=== PATIENT | male | born 1975 | race Caucasian/White ===

== ENCOUNTER 2020-04-16 02:01 | Observation (INO) ==
[2020-04-16] MEDS ORDERED: Aspirin 81 MG TAB.CHEW PO ONE (02:13)
[2020-04-16 02:41] LABS: Basophils % 0.3 %; Eosinophils # 0.1 K/mcL (0.0-0.6); Eosinophils % 0.6 %; Hematocrit 41.9 % (37.5-50.1); Hemoglobin 13.7 g/dL (12.9-16.9); Immature Granulocytes % 0.4 % (0-4); Lymphocytes # 1.2 K/mcL (0.6-4.6); Lymphocytes % 9.7 %; Mean Corpuscular HGB Conc 32.7 g/dL (31.6-35.5); Mean Corpuscular Hemoglobin 32.1 pg (28.0-33.3); Mean Corpuscular Volume 98.1 fL (83.0-100.0); Mean Platelet Volume 10.4 fL (9.4-12.4); Monocytes # 1.2 K/mcL (0.0-1.3); Monocytes % 9.2 %; Neutrophils # 10.1 K/mcL (1.6-8.9); Platelet Count 239 K/mcL (140-400); Red Blood Count 4.27 M/mcL (4.19-5.50); Red Cell Distribution Width 13.1 % (11.5-14.5); Segmented Neutrophils % 79.8 %; White Blood Count 12.7 K/mcL (4.3-11.1)
[2020-04-16 02:46] LABS: INR 0.9; Prothrombin Time 10.5 Seconds (9.4-12.1)
[2020-04-16 02:49] LABS: Activated Partial Thrombo Time 31.6 Seconds (26.0-36.0)
[2020-04-16 03:04] LABS: Alanine Aminotransferase 16 Units/L (7-52); Albumin 4.2 g/dL (3.5-5.7); Albumin/Globulin Ratio 1.6 (1.1-2.2); Alkaline Phosphatase 76 Units/L (34-104); Aspartate Amino Transferase 17 Units/L (13-39); BUN/Creatinine Ratio 15 (6-26); Bilirubin,Total 0.4 mg/dL (0.3-1.0); Blood Urea Nitrogen 13 mg/dL (6-20); Carbon Dioxide 28 mEq/L (23-29); Chloride 101 mEq/L (98-107); Globulin 2.7 g/dL (2.4-3.5); Glucose 88 mg/dL (70-105); Osmolality,Calculated 282 (280-300); Sodium 136 mEq/L (136-145); Total Protein 6.9 g/dL (6.4-8.9); Troponin I < 0.03 ng/mL (< 0.04); eGFR For African Americans > 60 (> 60); eGFR For Non-African Americans > 60 (> 60)
[2020-04-16] MEDS ORDERED: *HR* FentaNYL (PF) 100 MCG/2 ML VIAL IVP ONE (04:01)
[2020-04-16] MEDS ORDERED: Naloxone 0.4 MG/ML INJ IVP PRN (04:03)
[2020-04-16] MEDS ORDERED: Ondansetron 4 MG/2 ML VIAL IVP PRN (04:03)
[2020-04-16] MEDS ORDERED: Perflutren Lipid Microsphere 1.3 ML in 0.9 % Sodium Chloride 8.7 ML IVP PRN (04:06)
[2020-04-16] MEDS ORDERED: *HR* LORazepam 2 MG/ML VIAL IVP PRN ×3 (06:25)
[2020-04-16] MEDS: Folic Acid 1 MG TABLET PO SCH (10:04)
[2020-04-16] MEDS: Colchicine 0.6 MG TABLET PO SCH ×2 (10:04→20:24)
[2020-04-16] MEDS: lisinopriL 10 MG TABLET PO SCH (10:04)
[2020-04-16] MEDS: Indomethacin 25 MG CAPSULE PO SCH ×3 (10:05→18:27)
[2020-04-16] MEDS: Thiamine (B-1) 100 MG TABLET PO SCH (10:05)
[2020-04-16] MEDS: Vitamin B Complex/Vit C/Vit E 1 EACH TABLET PO SCH (10:05)
[2020-04-16] MEDS ORDERED: Isovue-370 500 ML BOTTLE IVP ONE (12:06)
[2020-04-16] MEDS ORDERED: 0.9 % Sodium Chloride 1,000 ML IVC SCH (14:45)
[2020-04-17 06:04] LABS: Basophils % 0.2 %; Eosinophils # 0.1 K/mcL (0.0-0.6); Eosinophils % 0.7 %; Hematocrit 38.9 % (37.5-50.1); Hemoglobin 12.5 g/dL (12.9-16.9); Immature Granulocytes % 0.5 % (0-4); Lymphocytes # 1.2 K/mcL (0.6-4.6); Lymphocytes % 13.4 %; Mean Corpuscular HGB Conc 32.1 g/dL (31.6-35.5); Mean Corpuscular Hemoglobin 31.8 pg (28.0-33.3); Mean Platelet Volume 11.1 fL (9.4-12.4); Monocytes % 10.8 %; Neutrophils # 6.8 K/mcL (1.6-8.9); Platelet Count 191 K/mcL (140-400); Red Blood Count 3.93 M/mcL (4.19-5.50); Segmented Neutrophils % 74.4 %; White Blood Count 9.2 K/mcL (4.3-11.1)
[2020-04-17 06:45] LABS: BUN/Creatinine Ratio 15 (6-26); Blood Urea Nitrogen 11 mg/dL (6-20); Carbon Dioxide 27 mEq/L (23-29); Chloride 106 mEq/L (98-107); Glucose 114 mg/dL (70-105); Osmolality,Calculated 288 (280-300); Phosphorous 3.5 mg/dL (2.7-4.5); Potassium 3.9 mEq/L (3.5-5.1); Sodium 139 mEq/L (136-145); eGFR For African Americans > 60 (> 60); eGFR For Non-African Americans > 60 (> 60)
[2020-04-17 06:48] VITALS: BP 109/69
[2020-04-17] MEDS: Folic Acid 1 MG TABLET PO SCH (07:48)
[2020-04-17] MEDS: Colchicine 0.6 MG TABLET PO SCH (07:48)
[2020-04-17] MEDS: Vitamin B Complex/Vit C/Vit E 1 EACH TABLET PO SCH (07:49)
[2020-04-17] MEDS: lisinopriL 10 MG TABLET PO SCH (07:49)
[2020-04-17] MEDS: Thiamine (B-1) 100 MG TABLET PO SCH (07:49)
[2020-04-17] MEDS: Indomethacin 25 MG CAPSULE PO SCH (07:49)
== END 2020-04-17 10:56 | disposition home or self-care (01) ==
LOC: EMEROOARM 02:01 → 3BNU 02:01 → SUATTDRO 04:31 → 3BNU 04:35
PROVIDERS: ADMIT Family Medicine; ATTEND Internal Medicine